=== PATIENT | female | born 1960 | race Caucasian/White ===

== ENCOUNTER → 2016-08-25 | Outpatient (CLI) | payer OTHER ==
[~2016-08-25] MED LIST: GADOBUTROL 7.5 MMOL/7.5 ML VIAL IV ONE
--- NOTE | 2016-08-25 16:21 | RAD ---
PROCEDURE MRI of the brain without and with contrast 08/25/2016 HISTORY Seizure followed by right facial droop on 08/06/2016 TECHNIQUE Unenhanced T1 weighted sagittal and axial and FLAIR, T2 weighted, gradient echo and diffusion weighted axial images of the brain were obtained. Additionally FLAIR coronal images through the temporal lobes were obtained. After the intravenous administration of 5 cc of Gadavist, enhanced T1 weighted axial and coronal images of the brain were obtained. FINDINGS Comparison study is dated 07/16/2015. There is generalized parenchymal atrophy. Patchy, confluent and small focal areas of abnormally increased signal intensity are seen within the periventricular and subcortical white matter of both cerebral hemispheres on the FLAIR and T2 weighted images consistent with areas of small vessel ischemic disease. Old areas of lacunar infarction are seen involving the left right thalamus and the region the centrum semiovale bilaterally. These measure 3 millimeters to no one centimeter in size. They are unchanged. No acute parenchymal abnormality is seen. There is no MRI evidence of acute ischemia/infarction. No extra-axial fluid collection is noted. Images through the temporal lobes are within normal limits. Mild mucosal thickening is seen scattered throughout the paranasal sinuses bilaterally. There is a large left mastoid effusion. Normal flow voids are seen within the major vascular structures surrounding the brain parenchyma. A 1 centimeter mass is seen within the right orbital apex which likely represents a hemangioma. It is unchanged. IMPRESSION No acute parenchymal abnormality is seen. Electronically signed by: Sky Lu MD (Aug 25, 2016 16:20:04)
== END | disposition home or self-care (01) ==
LOC: MRI 12:28
PROVIDERS: ATTEND Family Medicine
DX: R29.810 Facial weakness (principal)
CPT/HCPCS: 70553; A9585

== ENCOUNTER 2020-08-19 16:23 | Emergency (ER) | payer SELFPAY ==
[~2020-08-19] VITALS: Ht 162.6 cm; Wt 59.1 kg
[2020-08-19 17:36] VITALS: BP 127/88
[2020-08-19] MEDS ORDERED: CLINDAMYCIN 900MG PREMIX 50 ML IV ONE (17:45)
--- NOTE | 2020-08-19 17:47 | PHYS DOC ---
Past Medical History Past Medical History: Anxiety, Depression (ADILSON ESCOBAR DO) Past Surgical History: No Surgical History (ADILSON ESCOBAR DO) Smoking Status: Current Every Day Smoker Alcohol Use: Heavy Additional Information: approx 6 pack daily (ADILSON ESCOBAR DO) General Adult EDM: Chief Complaint: CELLULITIS HPI: HPI: 60-year-old female past medical history of hypertension, tobacco dependence and anxiety and depression, since the ED with complaints of red rash reporting her indoor/outdoor cat scratch her multiple times a few weeks ago. States she completed a course of Keflex and doxycycline last Wednesday. Was seen by Dr. Lee today and referred here to the ED. denies any IV drug use or daily alcohol abuse. Asks, "what's that," when I ask about h/o mrsa. No history of diabetes, steroid use or immunocompromise state. (ADILSON ESCOBAR DO) Review of Systems: Review of Systems: Constitutional: Denies fever or chills. [] Eyes: Denies change in visual acuity. [] HENT: Denies nasal congestion or sore throat. [] Respiratory: Denies cough or shortness of breath. [] Cardiovascular: Denies chest pain or edema. [] GI: Denies abdominal pain, nausea, vomiting, bloody stools or diarrhea. [] : Denies dysuria or hematuria Musculoskeletal: Denies back pain or joint pain. [] Integument: Denies diaphoresis or mucous membrane involvement of rash Neurologic: Denies headache, neck stiffness focal weakness or sensory changes. [] Endocrine: Denies polyuria or polydipsia. [] Lymphatic: Denies swollen glands. [] Psychiatric: Denies depression or anxiety. [] (ADILSON ESCOBAR DO) Heart Score: C/O Chest Pain: No Risk Factors: Risk Factors: DM, Current or recent (<one month) smoker, HTN, HLP, family history of CAD, obesity. Risk Scores: Score 0 - 3: 2.5% MACE over next 6 weeks - Discharge Home Score 4 - 6: 20.3% MACE over next 6 weeks - Admit for Clinical Observation Score 7 - 10: 72.7% MACE over next 6 weeks - Early Invasive Strategies (ADILSON ESCOBAR DO) Current Medications: Current Medications Medications (Trade) Dose Ordered Sig/Rose Start Time Stop Time Status Last Admin Dose Admin Cefazolin Sodium/ Dextrose 50 ml @ 100 mls/hr 1X ONCE 08/19/20 17:45 08/19/20 18:14 Clindamycin Phosphate 50 ml @ 100 mls/hr 1X ONCE 08/19/20 17:45 08/19/20 18:14 (ADILSON ESCOBAR DO) Allergies: Allergies: Allergies Coded Allergies Type Severity Reaction Last Updated Verified No Known Drug Allergies 07/16/15 No (ADILSON ESCOBAR DO) Physical Exam: PE: Constitutional: Well developed, well nourished, no acute distress, non-toxic appearance, slurred speech/mild ataxic movements, denies alcohol abuse HENT: Normocephalic, atraumatic, Eyes: EOMI, conjunctiva normal, no discharge. Neck: Normal range of motion, supple, Cardiovascular: S1/2 present, tachycardic Lungs & Thorax: Speaking in full sentences, bilateral equal chest rise, no tachypnea or increased work of breathing Abdomen: soft, no tenderness, Skin: Warm, dry, no palpable subcutaneous emphysema Extremities: No tenderness, no cyanosis, circumferential erythema over patient's left leg that extends to her ankle swelling and three quarters of the way her leg, discoloration along base of left foot with no lateral calf and left ankle swelling, small bump of shiny skin - appears to be early blister vs boil just superior to left ankle showing approximately 3.5 x 3.5 cm Neurologic: Alert and oriented X 3, normal motor function, normal sensory function, no focal deficits noted. [] Psychologic: Affect normal, judgement normal, mood normal. [] (ADILSON ESCOBAR DO) Current Patient Data: Vital Signs: Vital Signs Date Time Temp Pulse Resp B/P (MAP) Pulse Ox O2 Delivery O2 Flow Rate FiO2 08/19/20 17:29 97.7 105 20 148/96 (113) 95 Room Air 97.7 (ADILSON ESCOBAR DO) EKG: EKG: [] (ADILSON ESCOBAR DO) Radiology/Procedures: Radiology/Procedures: [] (ADILSON ESCOBAR DO) Course & Med Decision Making: Course & Med Decision Making Pertinent Labs and Imaging studies reviewed. (See chart for details) Concern for left lower extremity circumferential cellulitis with desquamation, cat scratch disease-has failed outpatient antibiotics. Labs and imaging pending. Started on antibiotics with MRSA coverage. Due to shift change patient was signed out to oncoming physician Dr. Khan for further evaluation disposition. (ADILSON ESCOBAR DO) Course & Med Decision Making Assumed care at shift change 1800hrs. Disposition - admission. Pending labs and radiologic imaging. I never evaluated patient. 1900hrs nursing informed me that patient is not in room. Patient appears to have eloped after evaluation. (BRIJESH WILSON DO) Dragon Disclaimer: Dragon Disclaimer: This electronic medical record was generated, in whole or in part, using a voice recognition dictation system. (ADILSON ESCOBAR DO) Departure Departure Impression: Primary Impression: Cellulitis of left lower extremity Disposition: 07 AMA/ELOPED/LWBS Referrals: JAE LEE MD (PCP) ADILSON ESCOBAR DO Aug 19, 2020 17:47 BRIJESH WILSON DO Aug 19, 2020 19:00
[2020-08-21] MEDS ORDERED: HYDR25TA PO (02:13)
[2020-08-21] MEDS ORDERED: LISI1TAB37 PO (02:13)
== END 2020-08-19 19:02 | disposition left against medical advice (07) ==
LOC: ER 16:23
DX: L03.116 Cellulitis of left lower limb (principal); R21 Rash and other nonspecific skin eruption; F41.9 Anxiety disorder, unspecified; F32.9 Major depressive disorder, single episode, unspecified; F17.210 Nicotine dependence, cigarettes, uncomplicated; F10.10 Alcohol abuse, uncomplicated
CPT/HCPCS: 99281; 99283

== ENCOUNTER → 2021-01-20 | Outpatient (CLI) | payer OTHER ==
[2020-08-24 11:00] VITALS: BP 144/87
[~2021-01-20] MED LIST changes: -GADOBUTROL 7.5 MMOL/7.5 ML VIAL IV ONE; +HYDR25TA PO; +LISI1TAB37 PO
--- NOTE | 2021-01-20 14:24 | RAD ---
XR KNEE 1-2 VIEWS 01/20/2021 2:20 PM Reason: PAIN Comparison: None Technique: Frontal and lateral radiographs of each knee Findings: There is no acute fracture or dislocation. There is mild joint space narrowing at the medial tibiofem oral compartments bilaterally. There is subchondral sclerosis as well. No knee joint effusion. Surrou nding soft tissues are unremarkable. Impression: 1. No acute osseous abnormality. 2. Mild medial tibiofemoral osteoarthrosis bilaterally. Electronically signed by: Benito Canada (01/20/2021 2:22 PM) [id number]
== END ==
LOC: RAD 10:49
PROVIDERS: ATTEND Family Medicine
DX: M17.0 Bilateral primary osteoarthritis of knee (principal); Z02.71 Encounter for disability determination
CPT/HCPCS: 73560-50